=== PATIENT | male | born 1995 | race Caucasian/White ===

== ENCOUNTER 2021-01-31 12:07 | Emergency (ER) | payer OTHER ==
[~2021-01-31] VITALS: Ht 162.6 cm; Wt 104.3 kg
--- NOTE | 2021-01-31 12:07 | NUR ---
PT BIBA TAKEN TO ER BED 3.
--- NOTE | 2021-01-31 12:11 | NUR ---
GRETEL GORDON WITH PT AT BEDSIDE FOR FURTHER EVALUATION.
[2021-01-31 12:14] VITALS: BP 183/105
--- NOTE | 2021-01-31 12:37 | NUR ---
PT TAKEN TO RAD VIA W/C
[2021-01-31] MEDS ORDERED: NAPR-54 PO (13:09)
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
[2021-01-31 13:22] VITALS: BP 137/91
== END 2021-01-31 13:24 | disposition home or self-care (01) ==
LOC: MED 12:07
DX: S63.501A Unspecified sprain of right wrist, initial encounter (principal); V98.8XXA Other specified transport accidents, initial encounter; Y93.89 Activity, other specified; Y92.89 Other specified places as the place of occurrence of the external cause; Y99.8 Other external cause status
CPT/HCPCS: 73080; 73110; 73130; 99284